=== PATIENT | female | born 1960 | race Caucasian/White ===

== ENCOUNTER 2024-06-08 12:28 | Emergency (ER) | payer BC, SELFPAY ==
[2024-06-08 12:30] VITALS: BP 167/100
[2024-06-08 12:57] LABS: % Basophils 0.3 % (0-2); % Eosinophils 0.7 % (0-6); % Immature Granulocytes 0.1 % (0-0.5); % Lymphocytes 39.3 % (20.5-51.1); % Neutrophils 53.6 % (42.2-75.2); Absolute Eosinophils 0.1 10^3/uL (0-0.7); Absolute Lymphocytes 2.7 10^3/uL (1.2-3.4); Absolute Monocytes 0.4 10^3/uL (0.1-0.6); Absolute Neutrophils 3.6 10^3/uL (1.4-6.5); Hematocrit 39.2 % (37.0-47.0); Hemoglobin 13.3 g/dL (12.0-16.0); Mean Corp Hgb Conc. 33.9 g/dL (33.0-37.0); Mean Corpuscular Volume 88.5 fL (81.0-99.0); Mean Platelet Volume 10.4 fL (7.4-10.4); Nucleated Red Blood Cells % 0 %; Platelet Count 285 10^3/uL (130-400); Red Blood Cell Count 4.43 10^6/uL (4.20-5.40); Red Cell Dist. Width 13.3 % (11.5-14.5); White Blood Cell Count 6.8 10^3/uL (4.8-10.8)
[2024-06-08 13:15] LABS: ALT (SGPT) 21 U/L (0-35); AST (SGOT) 28 U/L (14-36); Albumin 4.7 g/dl (3.5-5.0); Alkaline Phosphatase 55 U/L (38-126); Blood Urea Nitrogen 12 mg/dl (7-17); Calcium 9.8 mg/dl (8.4-10.2); Carbon Dioxide 26 mmol/L (22-30); Chloride 103 mmol/L (98-107); Glucose 101 mg/dl (70-99); Potassium 4.5 mmol/L (3.5-5.1); Sodium 137 mmol/L (135-145); Total Bilirubin 1.6 mg/dl (0.2-1.3); Total Protein 7.2 g/dl (6.3-8.2); eGFR > 60.00
[2024-06-08 13:24] LABS: Troponin I < 0.012 ng/ml
[2024-06-08 13:25] LABS: INR 0.98; PT 12.8 Sec (11.4-14.6)
[2024-06-08 14:02] LABS: D-Dimer < 0.27 ug/mlFEU (0.00-0.50)
--- NOTE | 2024-06-08 14:05 | ED.GENMED ---
History of Present Illness
General
Chief Complaint: Heart Rate Problem
Time Seen by Provider: 06/08/24 13:28
History of Present Illness
History of Present Illness:
63-year-old female with history of palpitations on metoprolol and GERD presenting to the emergency department for palpitations. Patient reports she was at work this morning around 9 AM and had palpitations that were worse than she has ever felt.
She went to [facility], they checked her heart rate and were concerned that she may be in an irregular rhythm. She notes that she does take a short acting metoprolol in addition to her long-acting metoprolol when she has palpitations. She
took a dose prior to arrival. Notes that she is still feeling the palpitations, which he describes as her heart skipping a beat. 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
pathology detected. Denies associated chest pain or difficulty breathing. Denies excessive caffeine intake or supplement use. Denies illness or fever. Denies abdominal pain or GI symptoms, or additional acute medical complaints.
Phy Exam
Physical Exam
Physical Exam:
General: Well-appearing, no clinical signs of dehydration, nontoxic and in no acute distress
HEENT: protecting airway
Neck: appears supple
CV: Bradycardic, regular rhythm, no evidence of cyanosis
Resp: No accessory muscle use, no increased work of breathing, lungs clear to auscultation bilaterally
Abd: Soft and non-distended, no tenderness to palpation
Extremities: No deformities, no swelling, no erythema
Neuro: alert, no focal neurologic deficit
: deferred
Rectal: deferred
Psych: Normal affect
Skin: Intact
Course
Orders/Labs/Results
Orders:
Orders
06/08/24 12:36
Electrocardiogram (*1) Urgent
Reason for Study: Palpitations
06/08/24 12:37
EKG- Treatment ONCE
06/08/24 12:48
Complete Blood Count/With Diff Urgent
Comprehensive Metabolic Panel Urgent
D-Dimer Urgent
Comment: D DIMER ADDED ON BY FLOOR 1:45PM 06-08-24
Prothrombin Time Urgent
TSH Reflex To Free T4 Urgent
Troponin I Urgent
06/08/24 13:46
Add On- LAB Urgent
Tests Added?: D-dimer
Abnormal Lab Results
06/08/24
12:48
Glucose 101 H mg/dl
(70-99)
Total Bilirubin 1.6 H mg/dl
(0.2-1.3)
06/08/24 12:48
06/08/24 12:48
Vital Signs
Initial and Last Documented VS:
Initial Vital Signs
Temp Pulse Resp BP Pulse Ox
99.1 F 54 18 167/100 100
06/08/24 12:30 06/08/24 12:30 06/08/24 12:30 06/08/24 12:30 06/08/24 12:30
Last Documented Vital Signs
Temp Pulse Resp BP Pulse Ox
99.1 F 57 14 167/100 100
06/08/24 12:30 06/08/24 13:22 06/08/24 13:22 06/08/24 12:30 06/08/24 12:30
MDM/Problems Addressed
MDM/Problems Addressed:
63-year-old female with history of palpitations presenting for palpitations prior to arrival. On arrival significant for high blood pressure.
On exam, she is resting comfortably, no acute distress. On monitor, patient bradycardic, sinus rhythm. EKG obtained on patient's arrival, also sinus rhythm, no evidence of some PACs. Patient reports that she has had PACs in the past, and her
symptoms feel like a skipped beat. Suspect etiology of her preceding symptoms. No signs of irregular heart rhythm or ischemia. Suspect bradycardia at this time is from metoprolol. Will screen with laboratory analysis to ensure no electrolyte
abnormality. Patient reports history of breast cancer in the past, so we will also obtain D-dimer. Will send troponin, however patient without present chest pain with lower suspicion for ACS.
Patient's labs unremarkable, normal chemistry panel, normal blood counts. D-dimer is undetectable, as well as troponin. Heart rate remains sinus. Repeat EKG again unremarkable. At this time feel patient is stable for discharge, however with
follow-up with dry pan feeder. Strict return precautions communicated and patient verbalized understanding.
*EKG
Interpreted by ED Provider?: Yes
EKG Intrepretation Date: 06/08/24
EKG Intrepretation Time: 14:08
Interpretation: normal
Comparison EKG: no comparison EKG present
Heart Rate: 61
Rate: normal
Rhythm: sinus and PAC's
[place]: normal axis
Interval: normal interval
QRS Pattern: normal QRS
Ischemia: no ischemia
*Critical Care Note
Total Time (30-74mins, 75-104mins- exclusive of procedures): Not Applicable
ED Attending Note
-
Portions of this chart may have been created with voice recognition software.� Occasional wrong word or��sound alike� substitutions may have occurred due to the inherent limitations of voice recognition software.
Discharge Plan
Interventions
Interventions:
*Risk Screen - Suicide Last Done: 06/08/24 12:33
*General Assessment Last Done: 06/08/24 12:33
*Neglect/Abuse Screening Last Done: 06/08/24 12:33
*ED COVID-19 Vaccine History Last Done: 06/08/24 13:24
ED- Cardiac Assessment Last Done: 06/08/24 13:25
ED- Pulmonary Assessment Last Done: 06/08/24 13:25
Discharge Date and Time
Print Language: [id number]
[2024-06-08 14:12] LABS: TSH Reflex To Free T4 2.35 uIU/ml (0.47-4.68)
[2024-06-08 14:40] VITALS: BP 136/82
== END 2024-06-08 15:09 | disposition home or self-care (01) ==
LOC: EMR 12:28
PROVIDERS: Emergency Medicine; EMERGENCY PHYSICIAN Student in an Organized Health Care Education/Training Program; FAMILY PHYSICIAN Orthopaedic Surgery
DX: I49.1 Atrial premature depolarization (principal); R00.2 Palpitations; K21.9 Gastro-esophageal reflux disease without esophagitis
CPT/HCPCS: 99284; 80053; 84443; 84484; 85025; 85379; 85610; 93005